=== PATIENT | female | born 1945 | race Caucasian/White ===

== ENCOUNTER 2017-10-14 16:27 | Emergency (ER) | payer MEDICARE, BC ==
[2017-10-14 20:19] LABS: BASOPHILS 0.3 % (0-2); EOSINOPHILS 1.3 % (0-7); HEMATOCRIT 35.5 % (36.0-48.0); IMMATURE GRANULOCYTES 0.1 % (0-5); LYMPHOCYTES 29.7 % (15-50); MCHC 33.8 g/dL (31.0-37.0); MCV 88.8 fL (80.0-100.0); MEAN PLATELET VOLUME 9.8 fL (7.4-10.4); MONOCYTES 5.6 % (2-11); PLATELET COUNT 246 10x3/uL (130-400); RDW 13.5 % (11.5-14.5); WBC 6.8 10x3/uL (4.8-10.8)
[2017-10-14 20:24] LABS: ALBUMIN 3.6 g/dL (3.4-5.0); ANION GAP 9.3 mmol/L (8-16); BILIRUBIN - TOTAL 0.29 mg/dL (0.2-1.3); CALCIUM 9.2 mg/dL (8.5-10.1); CARBON DIOXIDE 31.4 mmol/L (21.0-32.0); CREATININE - SERUM 1.1 mg/dL (0.6-1.3); POTASSIUM - SERUM 3.7 mmol/L (3.5-5.1); PROTEIN - SERUM 7.5 g/dL (6.4-8.2)
== END 2017-10-14 20:52 | disposition home or self-care (01) ==
LOC: D.ER 16:27
PROVIDERS: Family Medicine
DX: L03.031 Cellulitis of right toe (principal); L97.519 Non-pressure chronic ulcer of other part of right foot with unspecified severity; I10 Essential (primary) hypertension

== ENCOUNTER → 2018-03-20 09:17 | Outpatient (CLI) | payer MEDICARE, BC | END | disposition home or self-care (01) | LOC: D.US 09:17 | DX: R10.9 Unspecified abdominal pain (principal) ==

== ENCOUNTER 2018-06-10 20:23 | Inpatient (IN) | payer MEDICARE, BC ==
[~2018-06-10] VITALS: Ht 165.1 cm; Wt 95.2 kg
[2018-06-10] MEDS ORDERED: AZELASTINE137 MCG/0. NASAL (20:28)
[2018-06-10] MEDS ORDERED: VALISONE 0.1% C15 GM (20:28)
[2018-06-10] MEDS ORDERED: LEVOXYL125 MCG PO (20:29)
[2018-06-10] MEDS ORDERED: PROZAC40 MG PO (20:29)
[2018-06-10] MEDS ORDERED: FAMVIR500 MG PO (20:29)
[2018-06-10] MEDS ORDERED: ATIVAN0.5 MG PO (20:29)
[2018-06-10] MEDS ORDERED: K-DUR20 MEQ PO (20:30)
[2018-06-10] MEDS ORDERED: MYSOLINE 50 MG50 MG PO (20:30)
[2018-06-10 21:12] LABS: BASOPHILS 0.1 % (0-2); EOSINOPHILS 0 % (0-7); HEMATOCRIT 37.1 % (36.0-48.0); HEMOGLOBIN 12.9 g/dL (12-16); IMMATURE GRANULOCYTES 0.2 % (0-5); MCH 31.4 pg (26.0-34.0); MCHC 34.8 g/dL (31.0-37.0); MCV 90.3 fL (80.0-100.0); MEAN PLATELET VOLUME 9.8 fL (7.4-10.4); MONOCYTES 6.5 % (2-11); NEUTROPHILS 87.2 % (40-80); PLATELET COUNT 175 10x3/uL (130-400); RBC 4.11 10x6/uL (4.00-5.40); RDW 13.8 % (11.5-14.5); WBC 15.1 10x3/uL (4.8-10.8)
[2018-06-10 21:28] LABS: ALBUMIN 3.3 g/dL (3.4-5.0); ANION GAP 11.6 mmol/L (8-16); BILIRUBIN - TOTAL 0.4 mg/dL (0.2-1.3); CALCIUM 8.8 mg/dL (8.5-10.1); CARBON DIOXIDE 26.9 mmol/L (21.0-32.0); CREATININE - SERUM 1.1 mg/dL (0.6-1.3); POTASSIUM - SERUM 3.5 mmol/L (3.5-5.1); PROTEIN - SERUM 7.3 g/dL (6.4-8.2)
[2018-06-10 21:30] VITALS: BP 126/59
[2018-06-10 22:17] LABS: APPEARANCE HAZY (CLEAR); BILIRUBIN NEGATIVE (NEGATIVE); COLOR YELLOW (YELLOW); GLUCOSE NEGATIVE (NEGATIVE); KETONE NEGATIVE (NEGATIVE); NITRITE POSITIVE (NEGATIVE); PROTEIN 1+ mg/dL (NEGATIVE); UROBILINOGEN NORMAL (NORMAL)
[2018-06-10 22:19] LABS: BACTERIA MODERATE /hpf (NONE SEEN); EPITHELIAL CELLS 0-5 /hpf (0-5); RED CELLS - URINE 0-5 /hpf (0-5); WHITE CELLS - URINE >50 /hpf (0-5)
[2018-06-10 22:40] VITALS: BP 133/64
[2018-06-11 03:14] VITALS: BP 128/82; BMI 35.3
[2018-06-11 04:33] LABS: BASOPHILS 0.1 % (0-2); EOSINOPHILS 0 % (0-7); HEMATOCRIT 35.1 % (36.0-48.0); HEMOGLOBIN 12.1 g/dL (12-16); IMMATURE GRANULOCYTES 0.3 % (0-5); LYMPHOCYTES 8.9 % (15-50); MCH 31.3 pg (26.0-34.0); MCHC 34.5 g/dL (31.0-37.0); MCV 90.7 fL (80.0-100.0); MEAN PLATELET VOLUME 9.6 fL (7.4-10.4); MONOCYTES 5.7 % (2-11); PLATELET COUNT 156 10x3/uL (130-400); RBC 3.87 10x6/uL (4.00-5.40); WBC 14.3 10x3/uL (4.8-10.8)
[2018-06-11 04:59] LABS: ANION GAP 12.7 mmol/L (8-16); CARBON DIOXIDE 25.7 mmol/L (21.0-32.0); CREATININE - SERUM 1.3 mg/dL (0.6-1.3); POTASSIUM - SERUM 3.4 mmol/L (3.5-5.1)
[2018-06-11 06:50] VITALS: BP 113/80
[2018-06-11 13:57] VITALS: BP 145/85
[2018-06-11 14:11] VITALS: Ht 165.1 cm; Wt 95.2 kg
[2018-06-11 20:51] VITALS: BP 136/43
[2018-06-12 01:24] VITALS: BP 154/63
[2018-06-12 04:24] LABS: BASOPHILS 0.1 % (0-2); EOSINOPHILS 0 % (0-7); HEMATOCRIT 32.6 % (36.0-48.0); HEMOGLOBIN 11.3 g/dL (12-16); IMMATURE GRANULOCYTES 0.2 % (0-5); LYMPHOCYTES 9.2 % (15-50); MCH 31.1 pg (26.0-34.0); MCHC 34.7 g/dL (31.0-37.0); MCV 89.8 fL (80.0-100.0); MEAN PLATELET VOLUME 9.8 fL (7.4-10.4); MONOCYTES 6.3 % (2-11); NEUTROPHILS 84.2 % (40-80); PLATELET COUNT 152 10x3/uL (130-400); RBC 3.63 10x6/uL (4.00-5.40); RDW 13.8 % (11.5-14.5); WBC 10.7 10x3/uL (4.8-10.8)
[2018-06-12 04:47] LABS: ALBUMIN 2.6 g/dL (3.4-5.0); ANION GAP 11.6 mmol/L (8-16); BILIRUBIN - TOTAL 0.37 mg/dL (0.2-1.3); CALCIUM 7.8 mg/dL (8.5-10.1); CARBON DIOXIDE 26.5 mmol/L (21.0-32.0); CREATININE - SERUM 1.2 mg/dL (0.6-1.3); MAGNESIUM - SERUM 1.9 mg/dL (1.8-2.4); PHOSPHOROUS 2.1 mg/dL (2.5-4.9); POTASSIUM - SERUM 3.1 mmol/L (3.5-5.1); PROTEIN - SERUM 6.3 g/dL (6.4-8.2)
[2018-06-12 05:55] VITALS: BP 149/56
[2018-06-12 08:36] VITALS: BP 145/73
[2018-06-12 12:33] VITALS: BP 130/57
[2018-06-12 17:21] VITALS: BP 180/72
[2018-06-12 20:35] VITALS: BP 158/64
[2018-06-13 05:34] VITALS: BP 169/67
[2018-06-13 06:07] LABS: BASOPHILS 0.1 % (0-2); EOSINOPHILS 0.1 % (0-7); HEMOGLOBIN 10.5 g/dL (12-16); IMMATURE GRANULOCYTES 0.2 % (0-5); LYMPHOCYTES 13.8 % (15-50); MCH 30.3 pg (26.0-34.0); MCHC 33.9 g/dL (31.0-37.0); MCV 89.3 fL (80.0-100.0); MEAN PLATELET VOLUME 10.2 fL (7.4-10.4); MONOCYTES 10.7 % (2-11); NEUTROPHILS 75.1 % (40-80); PLATELET COUNT 166 10x3/uL (130-400); RBC 3.47 10x6/uL (4.00-5.40); RDW 13.6 % (11.5-14.5); WBC 8.4 10x3/uL (4.8-10.8)
[2018-06-13 06:30] LABS: ALBUMIN 2.4 g/dL (3.4-5.0); ANION GAP 9.8 mmol/L (8-16); BILIRUBIN - TOTAL 0.55 mg/dL (0.2-1.3); CALCIUM 8.1 mg/dL (8.5-10.1); CARBON DIOXIDE 26.1 mmol/L (21.0-32.0); CREATININE - SERUM 1.1 mg/dL (0.6-1.3); MAGNESIUM - SERUM 1.7 mg/dL (1.8-2.4); PROTEIN - SERUM 6.2 g/dL (6.4-8.2)
[2018-06-13 06:35] LABS: PHOSPHOROUS 1.5 mg/dL (2.5-4.9); POTASSIUM - SERUM 2.9 mmol/L (3.5-5.1)
[2018-06-13 08:26] VITALS: BP 154/61
[2018-06-13 11:35] VITALS: BP 163/71
[2018-06-13 16:00] VITALS: BP 183/85
[2018-06-13 16:15] LABS: PHOSPHOROUS 1.9 mg/dL (2.5-4.9); POTASSIUM - SERUM 3.4 mmol/L (3.5-5.1)
[2018-06-13 20:00] VITALS: BP 210/89
[2018-06-14] VITALS: BP 193/57
[2018-06-14 04:00] VITALS: BP 162/73
[2018-06-14 05:34] LABS: BASOPHILS 0.3 % (0-2); EOSINOPHILS 0.5 % (0-7); HEMOGLOBIN 10.6 g/dL (12-16); IMMATURE GRANULOCYTES 0.5 % (0-5); LYMPHOCYTES 15.1 % (15-50); MCH 30.3 pg (26.0-34.0); MCHC 34.2 g/dL (31.0-37.0); MCV 88.6 fL (80.0-100.0); MEAN PLATELET VOLUME 10.3 fL (7.4-10.4); MONOCYTES 7.8 % (2-11); NEUTROPHILS 75.8 % (40-80); PLATELET COUNT 179 10x3/uL (130-400); RDW 13.7 % (11.5-14.5); WBC 7.4 10x3/uL (4.8-10.8)
[2018-06-14 05:37] LABS: ANION GAP 9.6 mmol/L (8-16); CALCIUM 7.9 mg/dL (8.5-10.1); CARBON DIOXIDE 25.8 mmol/L (21.0-32.0); MAGNESIUM - SERUM 1.8 mg/dL (1.8-2.4); POTASSIUM - SERUM 3.4 mmol/L (3.5-5.1)
[2018-06-14 08:40] VITALS: BP 144/78
[2018-06-14 11:52] VITALS: BP 180/83
[2018-06-14 15:23] VITALS: BP 183/71
[2018-06-14 17:00] LABS: APPEARANCE CLEAR (CLEAR); BILIRUBIN NEGATIVE (NEGATIVE); COLOR YELLOW (YELLOW); GLUCOSE NEGATIVE (NEGATIVE); KETONE NEGATIVE (NEGATIVE); NITRITE NEGATIVE (NEGATIVE); PROTEIN NEGATIVE (NEGATIVE); SPECIFIC GRAVITY 1.005 (1.005-1.020); UROBILINOGEN NORMAL (NORMAL)
[2018-06-14 20:00] VITALS: BP 193/90
[2018-06-15] VITALS: BP 217/82
[2018-06-15 03:48] LABS: BASOPHILS 0.3 % (0-2); EOSINOPHILS 1.3 % (0-7); HEMATOCRIT 31.1 % (36.0-48.0); HEMOGLOBIN 10.8 g/dL (12-16); IMMATURE GRANULOCYTES 0.9 % (0-5); LYMPHOCYTES 19.1 % (15-50); MCH 30.6 pg (26.0-34.0); MCHC 34.7 g/dL (31.0-37.0); MCV 88.1 fL (80.0-100.0); MEAN PLATELET VOLUME 10.2 fL (7.4-10.4); MONOCYTES 9.3 % (2-11); NEUTROPHILS 69.1 % (40-80); PLATELET COUNT 213 10x3/uL (130-400); RBC 3.53 10x6/uL (4.00-5.40); RDW 13.8 % (11.5-14.5)
[2018-06-15 04:00] VITALS: BP 126/64
[2018-06-15 04:29] LABS: ALBUMIN 2.3 g/dL (3.4-5.0); ANION GAP 12.9 mmol/L (8-16); BILIRUBIN - TOTAL 0.73 mg/dL (0.2-1.3); CALCIUM 7.9 mg/dL (8.5-10.1); CARBON DIOXIDE 24.4 mmol/L (21.0-32.0); CREATININE - SERUM 0.8 mg/dL (0.6-1.3); POTASSIUM - SERUM 4.3 mmol/L (3.5-5.1); PROTEIN - SERUM 6.3 g/dL (6.4-8.2)
[2018-06-15 08:55] VITALS: BP 177/82
[2018-06-15 13:20] VITALS: BP 177/66
[2018-06-15 16:50] VITALS: BP 157/79
[2018-06-15 21:17] VITALS: BP 170/71
[2018-06-16 00:28] VITALS: BP 178/76
[2018-06-16 04:07] VITALS: BP 175/64
[2018-06-16 07:00] VITALS: BP 175/85
[2018-06-16 08:05] LABS: BASOPHILS 0.4 % (0-2); EOSINOPHILS 1.8 % (0-7); HEMATOCRIT 32.3 % (36.0-48.0); HEMOGLOBIN 11.2 g/dL (12-16); IMMATURE GRANULOCYTES 1.9 % (0-5); LYMPHOCYTES 16.1 % (15-50); MCH 30.5 pg (26.0-34.0); MCHC 34.7 g/dL (31.0-37.0); MEAN PLATELET VOLUME 9.8 fL (7.4-10.4); MONOCYTES 8.8 % (2-11); RBC 3.67 10x6/uL (4.00-5.40); WBC 9.4 10x3/uL (4.8-10.8)
[2018-06-16 08:15] LABS: ALBUMIN 2.5 g/dL (3.4-5.0); ANION GAP 13.6 mmol/L (8-16); BILIRUBIN - TOTAL 0.58 mg/dL (0.2-1.3); CALCIUM 8.1 mg/dL (8.5-10.1); CARBON DIOXIDE 23.2 mmol/L (21.0-32.0); CREATININE - SERUM 0.9 mg/dL (0.6-1.3); PLATELET COUNT 289 10x3/uL (130-400); POTASSIUM - SERUM 3.8 mmol/L (3.5-5.1); PROTEIN - SERUM 6.3 g/dL (6.4-8.2)
[2018-06-16 21:56] VITALS: BP 151/73
[2018-06-17 05:42] VITALS: BP 182/79
[2018-06-17 05:53] LABS: BASOPHILS 0.5 % (0-2); EOSINOPHILS 1.7 % (0-7); HEMATOCRIT 34.3 % (36.0-48.0); HEMOGLOBIN 12.1 g/dL (12-16); IMMATURE GRANULOCYTES 2.9 % (0-5); LYMPHOCYTES 19.9 % (15-50); MCH 31.2 pg (26.0-34.0); MCHC 35.3 g/dL (31.0-37.0); MCV 88.4 fL (80.0-100.0); MEAN PLATELET VOLUME 9.9 fL (7.4-10.4); RBC 3.88 10x6/uL (4.00-5.40); RDW 14.3 % (11.5-14.5); WBC 8.6 10x3/uL (4.8-10.8)
[2018-06-17 06:23] LABS: PLATELET COUNT 366 10x3/uL (130-400)
[2018-06-17 06:27] LABS: ALBUMIN 2.7 g/dL (3.4-5.0); ANION GAP 14.1 mmol/L (8-16); BILIRUBIN - TOTAL 0.53 mg/dL (0.2-1.3); CALCIUM 8.4 mg/dL (8.5-10.1); CARBON DIOXIDE 23.3 mmol/L (21.0-32.0); CREATININE - SERUM 0.9 mg/dL (0.6-1.3); POTASSIUM - SERUM 3.4 mmol/L (3.5-5.1); PROTEIN - SERUM 6.8 g/dL (6.4-8.2)
[2018-06-17 08:47] VITALS: BP 204/85
[2018-06-17 11:26] VITALS: BP 156/67
[2018-06-17 15:10] VITALS: BP 174/72
[2018-06-17 20:00] VITALS: BP 148/65
[2018-06-18] VITALS: BP 128/41
[2018-06-18 04:00] VITALS: BP 151/69
[2018-06-18 04:23] LABS: BASOPHILS 0.3 % (0-2); EOSINOPHILS 0.8 % (0-7); HEMOGLOBIN 11.6 g/dL (12-16); LYMPHOCYTES 16.4 % (15-50); MCH 30.4 pg (26.0-34.0); MCHC 34.1 g/dL (31.0-37.0); MCV 89.2 fL (80.0-100.0); MEAN PLATELET VOLUME 9.8 fL (7.4-10.4); MONOCYTES 9.1 % (2-11); NEUTROPHILS 71.4 % (40-80); PLATELET COUNT 402 10x3/uL (130-400); RBC 3.81 10x6/uL (4.00-5.40); RDW 14.5 % (11.5-14.5); WBC 9.7 10x3/uL (4.8-10.8)
[2018-06-18 04:51] LABS: ALBUMIN 2.7 g/dL (3.4-5.0); ANION GAP 13.7 mmol/L (8-16); BILIRUBIN - TOTAL 0.49 mg/dL (0.2-1.3); CALCIUM 8.4 mg/dL (8.5-10.1); CARBON DIOXIDE 24.7 mmol/L (21.0-32.0); MAGNESIUM - SERUM 1.8 mg/dL (1.8-2.4); PHOSPHOROUS 3.5 mg/dL (2.5-4.9); POTASSIUM - SERUM 3.4 mmol/L (3.5-5.1); PROTEIN - SERUM 6.5 g/dL (6.4-8.2)
[2018-06-18] MEDS ORDERED: CATAPRES0.1 MG PO (06:57)
[2018-06-18] MEDS ORDERED: HYDRALAZINE HCL50 MG PO (06:57)
[2018-06-18] MEDS ORDERED: NYSTATIN ORAL SU5 ML PO (06:58)
[2018-06-18] MEDS ORDERED: FLORAJEN3 CAPS460 MG PO (06:58)
[2018-06-18] MEDS ORDERED: DYAZIDE 37.5/251 CAP PO (06:58)
[2018-06-18] MEDS ORDERED: LEVAQUIN250 MG PO (06:59)
[2018-06-18 09:34] VITALS: BP 169/82
== END 2018-06-18 11:28 | DRG 872 ==
LOC: D.ER 20:23 → D.M2 23:09 → D.EDHOLD 23:09 → D.M2 23:56
PROVIDERS: Emergency Medicine; Family Medicine
DX: A41.9 Sepsis, unspecified organism (principal); N10 Acute pyelonephritis; E87.1 Hypo-osmolality and hyponatremia; E87.6 Hypokalemia; I10 Essential (primary) hypertension; E03.9 Hypothyroidism, unspecified; F41.8 Other specified anxiety disorders

== ENCOUNTER 2018-06-30 20:43 | Emergency (ER) | payer MEDICARE, BC ==
[~2018-06-30] VITALS: Ht 165.1 cm; Wt 95.0 kg
[~2018-06-30 20:43] MED LIST: ATIVAN0.5 MG PO; AZELASTINE137 MCG/0. NASAL; CATAPRES0.1 MG PO; DYAZIDE 37.5/251 CAP PO; FAMVIR500 MG PO; FLORAJEN3 CAPS460 MG PO; HYDRALAZINE HCL50 MG PO; K-DUR20 MEQ PO; LEVAQUIN250 MG PO; LEVOXYL125 MCG PO; MYSOLINE 50 MG50 MG PO; NYSTATIN ORAL SU5 ML PO; PROZAC40 MG PO; VALISONE 0.1% C15 GM
[2018-06-30 20:50] VITALS: Ht 165.1 cm; Wt 95.0 kg
[2018-06-30 21:15] LABS: BASOPHILS 0.3 % (0-2); HEMATOCRIT 36.9 % (36.0-48.0); HEMOGLOBIN 12.8 g/dL (12-16); IMMATURE GRANULOCYTES 0.2 % (0-5); LYMPHOCYTES 15.9 % (15-50); MCH 30.8 pg (26.0-34.0); MCHC 34.7 g/dL (31.0-37.0); MCV 88.9 fL (80.0-100.0); MEAN PLATELET VOLUME 9.1 fL (7.4-10.4); NEUTROPHILS 74.6 % (40-80); RBC 4.15 10x6/uL (4.00-5.40); RDW 13.4 % (11.5-14.5)
[2018-06-30 21:17] LABS: PLATELET COUNT 289 10x3/uL (130-400)
[2018-06-30 21:24] LABS: ALBUMIN 3.7 g/dL (3.4-5.0); ANION GAP 14.6 mmol/L (8-16); BILIRUBIN - TOTAL 0.37 mg/dL (0.2-1.3); CALCIUM 9.1 mg/dL (8.5-10.1); CREATININE - SERUM 1.1 mg/dL (0.6-1.3); POTASSIUM - SERUM 3.6 mmol/L (3.5-5.1); PROTEIN - SERUM 7.7 g/dL (6.4-8.2)
[2018-06-30 22:12] LABS: APPEARANCE CLEAR (CLEAR); BILIRUBIN NEGATIVE (NEGATIVE); COLOR YELLOW (YELLOW); GLUCOSE NEGATIVE (NEGATIVE); KETONE NEGATIVE (NEGATIVE); NITRITE NEGATIVE (NEGATIVE); PROTEIN NEGATIVE (NEGATIVE); UROBILINOGEN NORMAL (NORMAL)
[2018-06-30 22:13] LABS: BACTERIA MODERATE /hpf (NONE SEEN); EPITHELIAL CELLS 0-5 /hpf (0-5); RED CELLS - URINE 0-5 /hpf (0-5); WHITE CELLS - URINE 25-50 /hpf (0-5)
[2018-06-30 23:34] VITALS: BP 192/80
== END 2018-06-30 23:35 | disposition home or self-care (01) ==
LOC: D.ER 20:43
PROVIDERS: Emergency Medicine
DX: M79.1 Myalgia (principal); R68.83 Chills (without fever); N39.0 Urinary tract infection, site not specified; I10 Essential (primary) hypertension

== ENCOUNTER → 2020-07-08 15:44 | Outpatient (CLI) | payer MEDICARE, BC ==
[2018-06-30 20:50] VITALS: BMI 34.8
== END | disposition home or self-care (01) ==
LOC: D.US 15:44
PROVIDERS: ATTEND Family Medicine
DX: R60.0 Localized edema (principal)